=== PATIENT | male | born 1960 | race African-American/Black ===

== ENCOUNTER 2019-01-08 00:23 | Emergency (ER) | payer MEDICAID ==
[~2019-01-08] VITALS: Ht 167.6 cm; Wt 73.0 kg
[2019-01-08 01:00] VITALS: BP 124/88
== END 2019-01-08 01:30 | disposition home or self-care (01) ==
LOC: ER 00:23 → EDBD 00:23 → ER 01:30
DX: F10.129 Alcohol abuse with intoxication, unspecified (principal); F17.200 Nicotine dependence, unspecified, uncomplicated; Y90.9 Presence of alcohol in blood, level not specified; H54.61 Unqualified visual loss, right eye, normal vision left eye; H54.62 Unqualified visual loss, left eye, normal vision right eye
CPT/HCPCS: 99283

== ENCOUNTER 2019-09-25 00:44 | Emergency (ER) | payer MEDICAID ==
[~2019-09-25] VITALS: Ht 175.3 cm; Wt 66.0 kg
[2019-09-25 01:35] LABS: BASOPHILS % 0.9 % (0.0-2.0); EOSINOPHILS % 11.9 % (0.0-5.0); HEMATOCRIT. 39.3 % (42.0-52.0); HEMOGLOBIN. 13.3 g/dL (14.0-18.0); LYMPHOCYTES % 40.9 % (20.0-50.0); MEAN CORPUSCULAR HEMOGLOBIN 31.1 pg (28.0-32.0); MEAN CORPUSCULAR VOLUME 91.7 fL (80.0-94.0); MEAN PLATELET VOLUME 8.4 fl (7.4-10.4); MONOCYTES % 8.7 % (2.0-8.0); NEUTROPHILS % 37.6 % (40.0-76.0); PLATELET 349 x1000/uL (130-400); RED BLOOD CELL COUNT 4.28 mill/uL (4.7-6.1); RED CELL DISTRIBUTION WIDTH 13.8 % (11.6-14.6)
[2019-09-25 01:40] LABS: CHLORIDE 103 mEq/L (98-107)
[2019-09-25 01:45] LABS: ETHANOL BLOOD < 10 mg/dL
[2019-09-25] MEDS ORDERED: SODIUM CHLORIDE 0.9% 1,000 ML IV ONE ×3 (01:50→03:45)
[2019-09-25 03:03] LABS: CLARITY URINE CLEAR (CLEAR); COLOR URINE OTHER (YELLOW); KETONES URINE NEGATIVE (NEGATIVE); LEUKOCYTE ESTERASE URINE NEGATIVE (NEGATIVE); NITRITE URINE NEGATIVE (NEGATIVE); OCCULT BLOOD URINE NEGATIVE (NEGATIVE); PH URINE 5.5 (4.5-8.0); PROTEIN URINE NEGATIVE (NEGATIVE); SPECIFIC GRAVITY URINE 1.037 (1.005-1.030); UROBILINOGEN URINE 0.2 E.U./dL (0.2-1.0)
[2019-09-25 03:16] LABS: *AMPHETAMINES SCREEN URINE PRESUMTIVE POSITIVE (NEGATIVE); *BARBITURATES SCREEN URINE NEGATIVE (NEGATIVE); *BENZODIAZEPINES SCREEN URINE NEGATIVE (NEGATIVE); *COCAINE SCREEN URINE NEGATIVE (NEGATIVE); METHADONE URINE SCREEN NEGATIVE (NEGATIVE)
[2019-09-25 03:17] LABS: CANNABINOID URINE SCREEN PRESUMTIVE POSITIVE (NEGATIVE); OPIATES URINE SCREEN NEGATIVE (NEGATIVE); PHENCYCLIDINE URINE SCREEN NEGATIVE (NEGATIVE)
[2019-09-25] MEDS ORDERED: METFORMIN HCL 500MG TABLET PO ONE (04:45)
[2019-09-25] MEDS ORDERED: INSULIN REGULAR (HUMULIN R) 300UNITS/3ML SUBCUT ONE (04:45)
[2019-09-25 06:00] VITALS: BP 152/86
== END 2019-09-25 16:18 | disposition home or self-care (01) ==
LOC: ER 00:44
DX: T43.621A Poisoning by amphetamines, accidental (unintentional), initial encounter (principal); Y92.89 Other specified places as the place of occurrence of the external cause; E11.65 Type 2 diabetes mellitus with hyperglycemia; F14.10 Cocaine abuse, uncomplicated; F12.10 Cannabis abuse, uncomplicated
CPT/HCPCS: 36415; 80053; 80305; 80320; 81003; 82962; 85025; 93005; 96360; 96361; 99284; J7030; G0480

== ENCOUNTER 2022-12-15 11:14 | Emergency (ER) | payer MEDICAID ==
[~2022-12-15] VITALS: Ht 182.9 cm; Wt 62.0 kg
[2022-12-15 11:17] VITALS: BP 130/48; PULSE 75; RESP 18; TEMP 97.8; O2SAT 100
[2022-12-15] MEDS ORDERED: TETANUS, DIPHTHERIA, PERTUSSIS VAC/PF 0.5ML (>10YR OLD) IM ONE (12:00)
== END 2022-12-15 13:07 | disposition home or self-care (01) ==
LOC: ER 11:14
DX: S02.2XXA Fracture of nasal bones, initial encounter for closed fracture (principal); S00.31XA Abrasion of nose, initial encounter; E11.9 Type 2 diabetes mellitus without complications; I10 Essential (primary) hypertension; F14.90 Cocaine use, unspecified, uncomplicated; F12.90 Cannabis use, unspecified, uncomplicated; F10.10 Alcohol abuse, uncomplicated; W10.1XXA Fall (on)(from) sidewalk curb, initial encounter; Y93.89 Activity, other specified; Y92.89 Other specified places as the place of occurrence of the external cause; Y99.8 Other external cause status; Y90.9 Presence of alcohol in blood, level not specified
CPT/HCPCS: 90715; 99283; Z7610

== ENCOUNTER 2024-01-28 18:52 | Emergency (ER) | payer MEDICAID ==
[~2024-01-28] VITALS: Ht 170.2 cm; Wt 61.0 kg
[2024-01-28 19:01] VITALS: O2SAT 99
[2024-01-28 20:42] LABS: BASOPHILS % 0.7 % (0.0-2.0); EOSINOPHILS % 5.4 % (0.0-5.0); HEMATOCRIT. 37.5 % (42.0-52.0); HEMOGLOBIN. 12.7 g/dL (14.0-18.0); LYMPHOCYTES % 28.2 % (20.0-50.0); MEAN CORPUSCULAR HEMOGLOBIN 32.5 pg (28.0-32.0); MEAN CORPUSCULAR HGB CONC 33.9 g/dL (31.0-37.0); MEAN CORPUSCULAR VOLUME 95.9 fL (80.0-94.0); MEAN PLATELET VOLUME 8.5 fl (7.4-10.4); MONOCYTES % 9.8 % (2.0-8.0); NEUTROPHILS % 55.9 % (40.0-76.0); PLATELET 265 x1000/uL (130-400); RED CELL DISTRIBUTION WIDTH 13.1 % (11.6-14.6); WHITE BLOOD COUNT 6.5 x1000/uL (4.5-11.0)
[2024-01-28 20:48] LABS: CHLORIDE 103 mEq/L (98-107); POTASSIUM 3.8 mEq/L (3.5-5.1); SODIUM 136 mEq/L (136-145)
[2024-01-28 20:49] LABS: CALCIUM 9.1 mg/dL (8.7-10.4); CARBON DIOXIDE 27 mEq/L (21-32)
[2024-01-28 20:52] LABS: PROTHROMBIN TIME 10.8 sec (9.6-11.0)
[2024-01-28 20:54] LABS: CREATININE 0.9 mg/dL (0.6-1.3); UREA NITROGEN BLOOD 19 mg/dL (9-23)
[2024-01-28 20:56] LABS: ALANINE AMINOTRANSFERASE 19 IU/L (10-49); ALBUMIN 3.9 g/dL (3.2-4.8); ASPARTATE AMINOTRANSFERASE 17 IU/L (<34); BILIRUBIN TOTAL 0.3 mg/dL (0.1-1.0); PROTEIN TOTAL 6.2 g/dL (6.0-8.3)
[2024-01-28 20:58] LABS: BILIRUBIN DIRECT < 0.1 mg/dL (<=3.0); GLUCOSE 325 mg/dL (70-105)
[2024-01-28 23:00] LABS: CLARITY URINE CLEAR (CLEAR); COLOR URINE YELLOW (YELLOW); GLUCOSE URINE 3+ (NEGATIVE); KETONES URINE NEGATIVE (NEGATIVE); LEUKOCYTE ESTERASE URINE NEGATIVE (NEGATIVE); NITRITE URINE NEGATIVE (NEGATIVE); OCCULT BLOOD URINE NEGATIVE (NEGATIVE); PH URINE 5.5 (4.5-8.0); PROTEIN URINE 1+ (NEGATIVE); SPECIFIC GRAVITY URINE 1.036 (1.005-1.030); UROBILINOGEN URINE 0.2 E.U./dL (0.2-1.0)
[2024-01-28] MEDS: SODIUM CHLORIDE 0.9% 500 ML IV ONE (23:06)
[2024-01-28] MEDS: ACETAMINOPHEN 325MG TABLET PO ONE (23:06)
[2024-01-28 23:16] LABS: BACTERIA URINE NONE SEEN; RBC URINE 0-2 /hpf (0-2); SQUAMOUS EPITHELIAL CELL URINE FEW /lpf (RARE/1+); URIC ACID CRYSTALS URINE 1+ /lpf; WBC URINE NONE SEEN /hpf (0-2)
[2024-01-28 23:40] VITALS: BP 111/64; PULSE 98; RESP 18; TEMP 36.94740; O2SAT 100
== END 2024-01-29 00:40 | disposition home or self-care (01) ==
LOC: ER 18:52
DX: E11.65 Type 2 diabetes mellitus with hyperglycemia (principal); I10 Essential (primary) hypertension
CPT/HCPCS: 80076; 80048; 81003; 83690; 85025; 85610; 36415; 71045; 73110; 73130; 70450; 93005; 96360; 99291; Z7610 ×2